=== PATIENT | male | born 1955 | race Caucasian/White ===

== ENCOUNTER 2017-01-12 07:30 | Inpatient (IN) | payer OTHER ==
[~2017-01-12] VITALS: Ht 188 cm; Wt 109.8 kg
[2017-01-20] VITALS (13 sets, daily range): BP systolic 105–156; BP diastolic 58–98
[2017-01-20] MEDS ORDERED: DIGOXIN125 MCG ORAL (06:48)
[2017-01-20] MEDS ORDERED: NORVASC5 MG ORAL (06:48)
[2017-01-20] MEDS ORDERED: ALLOPURINOL300 M1 ORAL (06:48)
[2017-01-20] MEDS ORDERED: Thrombin 5000 units TOPIC ONE (06:56)
[2017-01-20] MEDS ORDERED: Gelfoam Absorbable 1gm powder pkt TOPIC ONE (06:57)
[2017-01-20] MEDS ORDERED: Bupivacaine w/Epi 0.5% 30ml Vial INJ ONE (06:57)
[2017-01-20] MEDS ORDERED: Vancomycin 1gm inj IVPB ONE (06:57)
[2017-01-20] MEDS ORDERED: Bacitracin 50000 Units Vial ONE (06:58)
[2017-01-20] MEDS ORDERED: ceFAZolin sod 2 GM in D5W 110 ML IVPB ONE (07:00)
[2017-01-20] MEDS ORDERED: CYMBALTA30 MG ORAL (07:03)
[2017-01-20] MEDS ORDERED: CLOPIDOGREL75 MG ORAL (07:03)
[2017-01-20] MEDS ORDERED: ZOLPIDEM TARTRA10 MG ORAL (07:03)
[2017-01-20] MEDS ORDERED: DOC-Q-LACE100 M1 ORAL (07:03)
[2017-01-20] MEDS ORDERED: DOXAZOSIN MESYLA1 MG ORAL (07:03)
[2017-01-20] MEDS ORDERED: LR 1000ml 1,000 ML IVLG SCH (07:04)
--- NOTE | 2017-01-20 07:04 | Anethesia Preoperative Eval ---
Anesthesia Pre-op PMH/ROS General Date of Evaluation: Jan 20, 2017 Time of Evaluation: 07:26 Anesthesiologist: Abhinav ASA Score: ASA 3 Mallampati Score Class I : Soft palate, uvula, fauces, pillars visible Class II: Soft palate, uvula, fauces visible Class III: Soft palate, base of uvula visible Class IV: Only hard plate visible Mallampati Classification: Class III Surgeon: Bry Diagnosis: Neck Pain Surgical Procedure: ACDF C4-5, C5-6 Anesthesia History: none Family History: no anesthesia problems Allergies: Coded Allergies: No Known Allergies (Unverified , 01/19/17) Medications: see eMAR Past Medical History Cardiovascular: Reports: CAD - Stent, HTN Gastrointestinal/Genitourinary: Reports: CRI - Peritoneal Dialysis Neurologic/Psychiatric: Reports: depression/anxiety Musculoskeletal/Integumentary: Reports: DDD - C4-5, C5-6, other - Gout PSxH Narrative: Cholecystectomy, Cardiac Stent Anesthesia Pre-op Phys. Exam Physician Exam Last Vital Signs Date Time Temp Pulse Resp B/P Pulse Ox O2 Delivery O2 Flow Rate FiO2 01/20/17 06:48 97.1 61 18 143/79 98 Room Air Constitutional: NAD Neurologic: CN 2-12 intact Cardiovascular: RRR Respiratory: CTA Gastrointestinal: S/NT/ND Airway Exam Mallampati Score: Class III MO: full ROM: limited Teeth: intact Anesthesia Pre-op A/P Risk Assessment & Plan Assessment: ASA 3 Plan: GA, BIS, Glidescope Status Change Before Surgery: No Pre-Antibiotics Dru Grams Ancef IV Given Within 1 Hr of Incision: Yes Time Given: 07:46 Fletcher Read MD Jan 20, 2017 07:04
[2017-01-20] MEDS ORDERED: Labetalol 5mg/ml 20ml vial IV PRN (07:15)
[2017-01-20] MEDS ORDERED: Norco 5mg/325mg tab ORAL PRN ×2 (07:15→07:45)
[2017-01-20] MEDS ORDERED: Midazolam 2mg/2ml Inj IVP PRN (07:15)
[2017-01-20] MEDS ORDERED: Meperidine 25mg/ml Inj IV PRN (07:15)
[2017-01-20] MEDS ORDERED: Metoclopramide 10mg/2ml Inj IVP PRN ×2 (07:15→07:45)
[2017-01-20] MEDS ORDERED: DiphenhydrAMINE 50mg/ml Inj IVP PRN (07:15)
[2017-01-20] MEDS ORDERED: Oxycodone/Acetaminophen 5-325 ORAL PRN (07:15)
[2017-01-20] MEDS ORDERED: Ketorolac 60mg Inj IV PRN (07:15)
[2017-01-20] MEDS ORDERED: Norco 7.5mg/325mg tab ORAL PRN ×3 (07:15→07:45)
[2017-01-20] MEDS ORDERED: Atropine Inj 1mg/10ml Syr IV PRN (07:15)
[2017-01-20] MEDS ORDERED: fentaNYL 100 mcg/2 mL IV PRN (07:15)
[2017-01-20] MEDS ORDERED: Ketorolac 30mg Inj IV PRN (07:15)
[2017-01-20] MEDS ORDERED: LORazepam Inj 2mg/ml 1ml IV PRN (07:15)
--- NOTE | 2017-01-20 07:34 | Pre-Procedure Note/Attestation ---
Pre-Procedure Note/Attestation Complete Prior to Procedure Planned Procedure: not applicable Procedure Narrative: Anterior cervical discectomy and fusion of C45 and 56 Indications for Procedure Pre-Operative Diagnosis: Herniation C45,56,67 Attestation I attest that I discussed the nature of the procedure; its benefits; risks and complications; and alternatives (and the risks and benefits of such alternatives ), prior to the procedure, with the patient (or the patient's legal enrollment representative). I attest that, if there was a reasonable possibility of needing a blood transfusion, the patient (or the patient's legal enrollment representative) was given the [facility] standardized written summary, pursuant to the [place] Blood Safety Act ([place] Health and Safety Code # 1645, as amended). I attest that I re-evaluated the patient just prior to the surgery and that there has been no change in the patient's H&P, except as documented below: SOPHIA CHERRY Jan 20, 2017 07:34
--- NOTE | 2017-01-20 07:36 | Brief Operative Note ---
Immediate Post Operative Note Operative Note Pre-op Diagnosis: Herniation C45,56,67 Procedure: Anterior cervical discectomy and fusion of C45 and 56 Post-op Diagnosis: same as pre-op Findings: consistent w/pre-op dx studies Surgeon: Bry Ship Runner: Nunu Anesthesia: general Specimen: none Complications: none Drains: none Implant(s) used?: Yes - SOPHIA Palmer Jan 20, 2017 07:36
[2017-01-20] MEDS ORDERED: Naloxone 0.4mg/ml Inj IVP PRN (07:45)
[2017-01-20] MEDS ORDERED: Milk of Magnesia 30ml Ud ORAL PRN (07:45)
--- NOTE | 2017-01-20 08:09 | Immediate Post-Op Evaluation ---
Immediate Post-Op Evalulation Immediate Post-Op Evalulation Procedure: ACDF C4-5,C5-6 Date of Evaluation: Jan 20, 2017 Time of Evaluation: 10:10 IV Fluids: 600 LR Blood Products: 0 Estimated Blood Loss: 30 Urinary Output: 200 Blood Pressure Systolic: 148 Blood Pressure Diastolic: 78 Pulse Rate: 68 Respiratory Rate: 16 O2 Sat by Pulse Oximetry: 99 Temperature (Fahrenheit): 97 Pain Score (1-10): 3 Nausea: No Vomiting: No Complications 0 Patient Status: awake, reacts, patent, extubated, none Hydration Status: adequate Dru Grams Ancef IV Given Within 1 Hr of Incision: Yes Time Given: 07:46 Fletcher Read MD Jan 20, 2017 08:09
[2017-01-20] MEDS ORDERED: Acetaminophen (Non formulary) 1,000 MG/100 ML ML IV ONE (08:30)
[2017-01-20] MEDS: Hydromorphone 0.5mg/0.5ml inj IVP PRN ×3 (10:41→11:20)
[2017-01-20] MEDS ORDERED: HYDROmorphone 1mg/ml Carpuject SUBQ PRN ×2 (13:30)
[2017-01-20] MEDS ORDERED: HYDROmorphone 1mg/ml Carpuject IVP PRN (13:30)
[2017-01-20] MEDS ORDERED: NS w/KCl 20mEq 1,000 ML IV SCH (16:00)
[2017-01-20] MEDS: ceFAZolin sod 1 GM in NS 55 ML IV SCH (17:01)
[2017-01-20] MEDS ORDERED: Docusate 100mg tablet ORAL SCH (18:00)
[2017-01-20] MEDS: HYDROmorphone 1mg/ml Carpuject IVP PRN (20:48)
--- NOTE | 2017-01-20 20:49 | Consultation ---
History of Present Illness General Date patient seen: Jan 20, 2017 Time patient seen: 20:46 Chief Complaint: neck pain Referring physician: Cornelio Londono MD Reason for Consultation: medical management Present Illness HPI 61 y/o man with hx of cervical stenosis, s/p cervical decompression/fusion without periop or postop complications. No chest pain or dyspnea, no n/v, postop pain well controlled. Allergies: Coded Allergies: No Known Allergies (Unverified , 01/19/17) Medication History Scheduled Allopurinol* (Allopurinol*), 300 MG ORAL DAILY, (Reported) Amlodipine Besylate (Norvasc), 5 MG ORAL DAILY, (Reported) Clopidogrel* (Clopidogrel*), 75 MG ORAL DAILY, (Reported) Digoxin* (Digoxin*), Unknown Dose ORAL DAILY, (Reported) Docusate Sodium (Doc-Q-Lace), 100 MG ORAL BID, (Reported) Doxazosin Mesylate* (Doxazosin Mesylate*), 2 MG ORAL DAILY, (Reported) Scheduled PRN Zolpidem Tartrate* (Zolpidem Tartrate*), 10 MG ORAL BEDTIME PRN for Insomnia, ( Reported) Patient History History Provided By: Patient Healthcare decision maker jose m() Resuscitation status Full Code Advanced Directive on File No Past Medical/Surgical History Past Medical/Surgical History: (1) HNP (herniated nucleus pulposus), cervical Family History Family History: (1) Family history in first degree relatives is unremarkable Social History Social History: (1) No significant social history Review of Systems ROS Narrative CONSTITUTIONAL: No weight loss, fever, chills, weakness or fatigue. HEENT: Eyes: No visual loss, blurred vision, double vision or yellow sclerae. Ears, Nose, Throat: No hearing loss, sneezing, congestion, runny nose or sore throat. SKIN: No rash or itching. CARDIOVASCULAR: No chest pain, chest pressure or chest discomfort. No palpitations or edema. RESPIRATORY: No shortness of breath, cough or sputum. GASTROINTESTINAL: No anorexia, nausea, vomiting or diarrhea. No abdominal pain or blood. NEUROLOGICAL: No headache, dizziness, syncope, paralysis, ataxia, numbness or tingling in the extremities. No change in bowel or bladder control. MUSCULOSKELETAL: No muscle, back pain, joint pain or stiffness. HEMATOLOGIC: No anemia, bleeding or bruising. LYMPHATICS: No enlarged nodes. No history of splenectomy. PSYCHIATRIC: No history of depression or anxiety. ENDOCRINOLOGIC: No reports of sweating, cold or heat intolerance. No polyuria or polydipsia. ALLERGIES: No history of asthma, hives, eczema or rhinitis. Physical Exam Physical Exam Narrative General: alert, cooperative, no distress, appears stated age Head: normocephalic, without obvious abnormality, atraumatic Eyes: conjunctivae/corneas clear. PERRL, EOM's intact Throat: lips, mucosa, and tongue normal. MMM Neck: incision c/d/i Lungs: clear to auscultation bilaterally Heart: regular rate and rhythm, S1, S2 normal, no murmur, click, rub or gallop Abdomen: soft, non-tender, non-distended, bowel sounds normal; no masses or organomegaly Extremities: extremities normal, atraumatic, no cyanosis or edema Pulses: 2+ and symmetric Skin: skin color, texture, turgor normal; no rashes or lesions Neurologic: grossly normal, no focal deficits Last 24 Hour Vital Signs Date Time Temp Pulse Resp B/P Pulse Ox O2 Delivery O2 Flow Rate FiO2 01/20/17 16:00 97.5 82 20 147/98 95 Room Air 01/20/17 14:56 98.6 01/20/17 12:36 98.6 01/20/17 12:35 98.6 01/20/17 11:50 98.6 58 20 116/59 97 Nasal Cannula 3.0 01/20/17 11:35 58 20 105/58 97 Nasal Cannula 3.0 01/20/17 11:20 59 20 111/58 97 Nasal Cannula 3.0 01/20/17 11:10 58 20 116/62 97 Nasal Cannula 3.0 01/20/17 10:57 57 20 119/63 97 Nasal Cannula 3.0 01/20/17 10:41 56 20 114/58 98 Nasal Cannula 3.0 01/20/17 10:25 60 20 128/68 97 Simple Mask 8.0 01/20/17 10:10 63 20 139/72 99 Simple Mask 8.0 01/20/17 10:05 66 20 137/76 99 Simple Mask 8.0 01/20/17 09:59 98.6 68 20 148/70 99 Simple Mask 8.0 01/20/17 09:59 68 16 99 01/20/17 06:48 97.1 61 18 143/79 98 Room Air Intake and Output 01/19/17 01/20/17 19:00 07:00 # Voids 1 Height (Feet): 6 Height (Inches): 2.00 Weight (Pounds): 242 Medications Current Medications Medications (Trade) Dose Ordered Sig/Raeann Route PRN Reason Start Time Stop Time Status Last Admin Dose Admin Acetaminophen (Tylenol) 650 mg Q4H PRN ORAL headache or temp>101 01/20/17 07:45 02/19/17 07:44 Acetaminophen/ Hydrocodone Bitart 1 tab 1 tab Q3H PRN ORAL pain score 1-3 01/20/17 07:45 01/27/17 07:44 Acetaminophen/ Hydrocodone Bitart (Hammond 7.5/325) 1 ea Q3H PRN ORAL pain score 4-6 01/20/17 07:45 01/27/17 07:44 Acetaminophen/ Hydrocodone Bitart (Hammond 7.5/325) 2 ea Q3H PRN ORAL pain scale 7-10 01/20/17 07:45 01/27/17 07:44 Carisoprodol (Soma) 350 mg TIDPRN PRN ORAL MUSCLE SPASMS 01/20/17 07:45 02/19/17 07:44 Cefazolin Sodium/ Sodium Chloride (Ancef/Sodium Chloride) 55 ml @ 110 mls/hr Q8H IV 01/20/17 16:00 01/21/17 08:29 01/20/17 17:01 Docusate Sodium (Colace) 100 mg TWICE A DAY ORAL 01/20/17 18:00 02/19/17 17:59 01/20/17 17:01 Hydromorphone HCl (Dilaudid) 1 mg Q2H PRN IVP Breakthrough Pain 01/20/17 13:30 01/27/17 13:29 Hydromorphone HCl (Dilaudid) 1 mg Q4H PRN SUBQ Mild Pain (Pain Scale 1-3) 01/20/17 13:30 01/27/17 13:29 Hydromorphone HCl (Dilaudid) 2 mg Q3H PRN SUBQ Severe Pain (Pain Scale 7-10) 01/20/17 13:30 01/27/17 13:29 4/14/17 14:26 Hydromorphone HCl (Dilaudid) 2 mg Q4H PRN SUBQ Moderate Pain (Pain Scale 4-6) 01/20/17 13:30 01/27/17 13:29 Magnesium Hydroxide (Mom) 30 ml QIDPRN PRN ORAL Constipation 01/20/17 07:45 02/19/17 07:44 Metoclopramide HCl (Reglan) 10 mg Q6H PRN IVP Nausea & Vomiting 01/20/17 07:45 02/19/17 07:44 Naloxone HCl (Narcan) 0.1 mg PRN PRN IVP RR<12/min, pt unarousable 01/20/17 07:45 02/19/17 07:44 Ondansetron HCl (Zofran) 4 mg Q6H PRN IVP Nausea & Vomiting 01/20/17 07:45 02/19/17 07:44 Sodium Chloride (NS w/KCl 20mEq) 1,000 ml @ 100 mls/hr Q10H IV 01/20/17 16:00 02/19/17 15:59 01/20/17 17:01 Temazepam (Restoril) 15 mg HSPRN PRN ORAL Insomnia 01/20/17 07:45 01/27/17 07:44 Assessment/Plan Problem List: (1) HNP (herniated nucleus pulposus), cervical Assessment & Plan: - s/p cervical fusion - Pt will go home and do PD - encourage mobilization/ambulation - encourage incentive spirometry to optimize pulmonary hygiene - DVT/GI prophylaxis as appropriate - ctm CBC and hemodynamics - ctm electrolytes, adjust/replete prn - PT/OT/ST, if indicated - pain control, supportive care, bowel regimen - DC planning ICD Codes: M50.20 - Other cervical disc displacement, unspecified cervical region SNOMED: [id number] SAHIL BARRETO Jan 20, 2017 20:49
--- NOTE | 2017-01-20 21:28 | Operative Note - Dictated ---
DATE OF OPERATION: 01/20/2017. SURGEON: Cornelio Londono MD, orthopedic spine surgeon. FLASH WELDING MACHINE OPERATOR SURGEON: Chino Eddy M.D. PREOPERATIVE DIAGNOSES: 1. Intractable neck pain. 2. Radiculopathy. 3. Herniation, C4-C5, 56,67 4. Neural foraminal stenosis C4-C5, 56,67 5. Stenosis. POSTOPERATIVE DIAGNOSES: 1. Intractable neck pain. 2. Radiculopathy. 3. Herniation, C4-C5, 56,67 4. Neural foraminal stenosis C4-C5, 56,67. 5. Stenosis. PROCEDURES PERFORMED: 1. Anterior cervical discectomy and fusion of C4-C5 and C5-C6 using NuVasive Cervical Interlock Cage, size 6 and osteocell 2cc 2. Use of intraoperative microscope. 3. Motor evoked potential monitoring. 4. Somatosensory evoked potential monitoring. 5. Supervision and interpretation of fluoroscopy. COMPLICATIONS: None. ANESTHESIA: General. ESTIMATED BLOOD LOSS: Less than 100 mL. INDICATIONS FOR SURGERY: This patient is a 61-year-old male, who has a history of intractable neck pain, radiculopathy, herniation C4-C5, 56,67 neural foraminal stenosis C4-C5, 56,67, and stenosis. We tried a course of conservative management but despite this course there was still a significant component of persistent, recalcitrant neck pain and arm pain. The MRI demonstrated significant neural foraminal compromise secondary to disc herniations at C4-C5 and C5-C6 and C67. But given his renal history and medications associated with this we discussed focusing on the worst two levels with this index procedure. Therefore we felt addressing C45 and C56 would be best for now to avoid complications such as pseudoarthrosis and prolonged length of surgery. We had a long discussion with Faina Cortez regarding the risks and benefits of surgery. Our discussion included but was not limited to nonoperative management, chiropractic management, another epidural steroid injection as well definitive management in the form of surgery. We recommended a Anterior cervical discectomy and fusion of C4-C5 and C5-C6 using NuVasive Cervical Interlock Cage, size 6 as final definitive management. We reviewed the risks and benefits of surgery with the patient. Our discussion included a comprehensive review of the clinical issues and the nature of the clinical decision. We reviewed the alternatives, including doing nothing. The patient elected to proceed accordingly with anterior cervical discectomy and fusion of C4-C5 and C5-C6 using NuVasive Cervical Interlock Cage, size 6. We had a long discussion regarding the risks, alternatives and benefits of surgery. Our description of the risks included a discussion in person as well as a signed consent which detailed all pertinent risks from the procedure itself. Briefly, our discussion included but was not limited to infection, bleeding, pseudarthrosis, spinal cord injury, neurovascular injury, dural tear, CSF leak, neuropathy, paralysis, permanent weakness/drop foot/drop arm, paresthesias, blindness, palsy and weakness. The patient understood there may be a need for a revision surgery or additional procedures. Approach-related complications including dysphonia, dysphagia, blindness, permanent vocal cord and neural injury, hematoma, swallowing and breathing difficulty. Medical complications were reviewed including liver, kidney, shock, cardiopulmonary failure, anesthesia complications including , swelling, damage to the musculature, larynx/voice injury or loss, esophagus/throat, trachea, blood vessels and muscles/muscular sprain and lungs/pneumothorax during this surgical procedure; injury to deeper structures may be temporary or permanent. After this review of risks, the patient understood these and elected to proceed. A written and verbal consent was given. We discussed the pros and cons of all the alternatives. We discussed the uncertainties associated with the decision. Afterwards I assessed the patient's understanding and explored their preferences. All questions were answered and no guarantees were given. Medical clearance was obtained prior to surgery. INTRAOPERATIVE FINDINGS: A broad based disc herniation which was found posterior to a tear/rent in the posterior longitudinal ligament causing a considerable amount of neural foraminal stenosis with significant encroachment on the neural foramina and spinal cord. DESCRIPTION OF PROCEDURE: Under the benefit of general endotracheal anesthesia and with the assistance of the entire operative team, the patient was moved from the [facility] onto the operative table in the supine position. The head was secured and carefully positioned appropriately. Bilateral arms were secured with Gelpads and foam and all bony prominences were padded. For the bilateral lower extremities SCD and SUSI hose were placed for DVT prophylaxis. A surgical timeout was called which corroborated our planned procedure of anterior cervical discectomy and fusion of C4-C5 and C5-C6 using NuVasive Cervical Interlock Cage, size 6. Preoperative antibiotics were administered within 30 minutes of the incision for antibiotic prophylaxis. Using lateral fluoroscopic radiography, the operative levels were delineated. Next the wound was prepped and draped with Chlorhexidine and sterile drapes. An incision was based on lateral fluoroscopy and we centered our incision at the C4-C5 and C5-C6 interspace and next using a standard Macdonald-Thakur anterior based approach the incision was taken down through the skin and subcutaneous tissues until the vertebral bodies and their corresponding disc spaces were visualized. A needle was placed into the interspace to confirm placement of the operative interspace and we performed the remainder of procedure under microscopic visualization. Next, using a bipolar and Bovie cautery to ensure meticulous hemostasis, the longus colli was mobilized bilaterally and retractors were placed deep to the longus colli bilaterally to address retraction. Next, we turned our attention to the radical anterior discectomy. This was initially performed at C4-C5 first by using a 15 blade scalpel followed by narrow pituitaries and a micro-sect 5-B curette was used to denude the endplate of all cartilaginous tissue. Next using a Midas Dae AM8 drillbit the vertebral endplates were debrided of cartillage in a layer by layer fashion, and ultimately the posterior uncinate joints bilaterally and posterior osteophytic lips and margins causing central and lateral impingement were carefully denuded until visualization of the posterior longitudinal ligament was possible. An endplate preparation was performed in the exact same fashion using an intervertebral bus assistant, sequential distraction was obtained throughout the disc space. We saw a tear/rent in the PLL and this was carefully mobilized and dissected using a micro-set 1-B curet until we visualized a broad-based disc herniation with compression of the spinal cord as well as neural foramina. This neural foraminal compression was carefully resected using a Kerrison-1 and Kerrison-2 rongeurs until complete decompression of the spinal cord was visualized and complete decompression of the neural foramina and nerve root therein as well as the axilla and lateral margin of the nerve root was visualized and subsequently completely decompressed. The family was notified at one hour intervals throughout the procedure to provide for consistent updates. Next, we turned our attention to the radical anterior discectomy at the C5-C6 level. First by using a 15 blade scalpel followed by narrow pituitaries and a micro-sect 5-B curette was used to denude the endplate of all cartilaginous tissue. Next using a Midas Dae AM8 drillbit the vertebral endplates were debrided of cartillage in a layer by layer fashion, and ultimately the posterior uncinate joints bilaterally and posterior osteophytic lips and margins causing central and lateral impingement were carefully denuded until visualization of the posterior longitudinal ligament was possible. An endplate preparation was performed in the exact same fashion using an intervertebral bus assistant, sequential distraction was obtained throughout the disc space. We saw a tear/rent in the PLL and this was carefully mobilized and dissected using a micro-set 1-B curet until we visualized a broad-based disc herniation with compression of the spinal cord as well as neural foramina. This neural foraminal compression was carefully resected using a Kerrison-1 and Kerrison-2 rongeurs until complete decompression of the spinal cord was visualized and complete decompression of the neural foramina and nerve root therein as well as the axilla and lateral margin of the nerve root was visualized and subsequently completely decompressed. We next turned our attention towards trialing our implant within the disc space. We initially tried size 5 and afterwards size 6 trial from the Nuvasive interlock-C plating system at each level, which appeared to be appropriate under AP and lateral fluoroscopy as well as in terms of its height, depth, width and lack of toggle. The PEEK polyetheretherketone interbody cages were then both packed with allograft bone from Osteocel and local autograft bone matrix. Next these were then carefully advanced and secured into their intervertebral spaces under direct visualization and with supervision of AP and lateral fluoroscopic views. We next turned our attention towards plating at C45. Plating was performed with Nuvasive interlock-C plating system. A total of 3 screws, size 14 mm in length were inserted and confirmed under AP and lateral fluoroscopy and confirmed to be in excellent position. This was again performed at C56 A total of 3 screws, size 14 mm in length were inserted and confirmed under AP and lateral fluoroscopy and confirmed to be in excellent position. After a finger sweep we confirmed removal of all sponges. The retractor was removed and we next turned our attention to meticulous hemostasis with FloSeal and bipolar cautery. After the sponge and needle count was again found to be correct with our second count, we next turned our attention to closure. The wound was again copiously irrigated with antibiotic impregnated saline. Closure consisted of 4-0 clear nylon for the platysma, and 6-0 clear nylon for the superficial skin. Final skin closure and dressings consisted of Dermabond. Prior to final closure, a final radiograph was obtained which demonstrated the hardware is intact with excellent position throughout. The patient tolerated the procedure well. The patient was carefully extubated after the conclusion of surgery. We discussed the findings of the surgery with the family upon completion of the case. At this point the patient was transferred to the spine floor for further observation. Cornelio Londono M.D. DR: LENO JOB#: [id number] CC: JOHANNA
[2017-01-20] MEDS ORDERED: Glycopyrrolate 0.2mg/ml 1ml Vial ONE ×4 (22:59)
[2017-01-20] MEDS ORDERED: fentaNYL 100 mcg/2 mL IV ONE ×2 (22:59)
[2017-01-20] MEDS ORDERED: Dexamethasone 4mg/ml vial ONE ×2 (22:59)
[2017-01-20] MEDS ORDERED: Neostigmine 1mg/ml 10ml Inj ONE ×2 (22:59)
[2017-01-20] MEDS ORDERED: fentaNYL 250mcg/5ml ONE ×2 (22:59)
[2017-01-20] MEDS ORDERED: Zemuron 50mg/5ml Inj IV ONE ×2 (22:59)
[2017-01-20] MEDS ORDERED: Lidocaine 1% MPF 10mg/ml 5ml ONE ×2 (22:59)
[2017-01-20] MEDS ORDERED: Propofol 10mg/ml 20ml IV ONE ×2 (22:59)
[2017-01-21] MEDS: ceFAZolin sod 1 GM in NS 55 ML IV SCH ×2
[2017-01-21] MEDS: HYDROmorphone 1mg/ml Carpuject IVP PRN (00:12)
[2017-01-21 08:17] VITALS: BP 156/92
--- NOTE | 2017-01-21 08:17 | 48 Hour Post Anesthesia Eval ---
Post Anesthesia Evaluation Procedure: ACDF C4-5,C5-6 Date of Evaluation: Jan 20, 2017 Time of Evaluation: 20:00 Blood Pressure Systolic: 156 0: 92 Pulse Rate: 80 Respiratory Rate: 20 Temperature (Fahrenheit): 98 O2 Sat by Pulse Oximetry: 97 Airway: patent Nausea: No Vomiting: No Pain Intensity: 2 Hydration Status: adequate Cardiopulmonary Status: at baseline Mental Status/LOC: patient returned to baseline Post-Anesthesia Complications: 0 Follow-up care needed: ready to discharge AMBER LYONS M.D. Jan 21, 2017 08:17
--- NOTE | 2017-01-21 12:17 | Discharge Summary ---
Discharge Summary Hospital Course Date of Admission Jan 20, 2017 at 05:23 Date of Discharge Jan 20, 2017 at 23:00 Admitting Diagnosis cervical stenosis ESRD ON PD Reason for Hospitalization: cervical spine surgery KORIN Cortez is a 61 year old male who was admitted on Jan 20, 2017 at 05:23 for Cervical Stenosis Consultations None Procedures See operative report Hospital Course 61 y/o man with hx of ESRD on PD, presented with cervical spine stenosis, s/p c- spine surgery, tolerated well without any periop or postop complications. No chest pain or dyspnea, postop pain well controlled, as a result was dced home same day as surgery to resume his daily PD at home. Discharge Condition Upon Discharge: stable Discharge Disposition Patient was discharged to Home (01) Discharge Diagnoses: (1) HNP (herniated nucleus pulposus), cervical SAHIL BARRETO Jan 21, 2017 12:17
--- NOTE | 2017-01-21 19:48 | Discharge Summary ---
DATE OF ADMISSION: 01/20/2017 DATE OF DISCHARGE: 01/20/2017 PROCEDURE PERFORMED DURING ADMISSION: Anterior cervical diskectomy and fusion of C4-5 and C5-6. REASON FOR ADMISSION: Herniated nucleus pulposus, C5-6 and C6-7. HOSPITAL COURSE/TREATMENT RENDERED: DISCHARGE PHYSICAL EXAM: 1. Patient was ambulating with and without the assistance of physical therapy. 2. Prior to discharge home incision was clean and dry with minimal swelling. 3. Follows commands. 4. Alert and oriented. 5. Sharpe discontinued, voiding. 6. Incentive spirometer at bedside. 7. IVF hep locked. MOTOR: Demonstrates expected postoperative bulk and tone. Moves biceps, triceps, and deltoid musculature on command. Moves hip flexors, quadriceps, tibialis anterior, EHL, gastrocsoleus musculature on command as well. TREATMENT RENDERED: 1. Daily nursing care. 2. Physical Therapy. 3. Occupational Therapy. 4. Intravenous medications. 5. Oral medications. 6. Daily postoperative examinations by Spine surgery team. CONDITION OF PATIENT ON DISCHARGE: The condition on discharge is stable for discharge to home. DISCHARGE INSTRUCTIONS: Our specific instructions relating to physical activity, medications diet and follow-up care are detailed in our standard operative folder and were given to this patient prior to surgery. We will however summarize these briefly as stated below. Regarding physical activity we would like the patient to limit their flexion, extension and rotation. We also require a limitation on their bending lifting and twisting. All medication has been called in prior to surgery to their pharmacy of choice. They can resume their regular diet once tolerated. We would like them to shower and limit soaking the wound in a tub/Jacuzzi/the ocean for a period of one month or until the incision is completely healed. We will have them follow up in our office in three weeks time for their regularly scheduled appointment. They understand to call our office tomorrow to schedule the time for their three week followup appointment. The patient will notify us should they experience any increase in the severity of pain, redness/swelling/ or drainage from their incision. Cornelio Londono M.D. DR: JERMAINE JOB#: [id number] CC:
--- NOTE | 2017-01-23 09:07 | Diagnostic Imaging Report ---
Indications: Neck pain, anterior cervical fusion Technique: The procedure including fluoroscopy performed by Dr. Londono. Portable intraoperative spot film images of the cervical spine performed in AP and lateral projections. Findings: Comparison: None Initial image demonstrates localizing needle tip overlying the anterior aspect of the C5-6 disc space. Bridging anterior osteophytes C4-5 through C6-7 disc spaces. Subsequent images demonstrate placement of fusion hardware within and across the anterior aspect of the C4-5 and C5-6 disc spaces. IMPRESSION: Surgical changes as described
== END 2017-01-20 23:00 | disposition home or self-care (01) | DRG 471 ==
LOC: SDSOVERFLO 01-20 05:23 → 3E 01-20 13:10
DX: M50.122 Cervical disc disorder at C5-C6 level with radiculopathy (principal); N18.6 End stage renal disease; I12.0 Hypertensive chronic kidney disease with stage 5 chronic kidney disease or end stage renal disease; I25.10 Atherosclerotic heart disease of native coronary artery without angina pectoris; M48.02 Spinal stenosis, cervical region; Z99.2 Dependence on renal dialysis
CPT/HCPCS: 36415; 72040; 76000; 86850; 86900; 86901; 87081; 94003; 94150; J2180; J2405; J2710